=== PATIENT | female | born 1980 | race Native Hawaiian/Other Pacific Islander ===

== ENCOUNTER 2018-08-28 13:08 | Emergency (ER) | payer OTHER ==
[2018-08-28 13:18] VITALS: TEMP 98.3
[2018-08-28 14:04] VITALS: O2SAT 98
--- NOTE | 2018-08-28 15:14 | ED PDOC ---
HPI: Hypertension/Hypotension Time Seen by Provider: 08/28/18 14:37 Chief Complaint (Nursing): High Blood Pressure Chief Complaint (Provider): High Blood Pressure History Per: Patient History/Exam Limitations: no limitations Onset/Duration Of Symptoms: Days (2x weeks) Current Symptoms Are (Timing): Still Present Associated Symptoms: Blurred Vision, Other (numbness and tingling of left hand 1x day- has since resolved, left sided neck and shoulder pain 2x weeks.). latisha es: Chest Pain, Headache Severity: Moderate Additional Complaint(s): 37 year old female with no pertinent past medical history presents to the ED for an evaluation of elevated blood pressure that started 2x weeks ago. Patient states that she had a regular physical 4x months ago, and changed control to blisovi . Patient was seen at an urgent care 3x months ago for right shoulder pain and was noted to have elevated blood pressure and was told it was probably due to her shoulder pain. 2x weeks ago patient was seen by a sports medicine doctor for left shoulder pain and had elevated blood pressure (175/117). Patient reports checking her blood pressure since then and is concerned because it has stayed elevated. Patient reports having intermittent headaches and blurry vision. Last night patient started experiencing left sided neck pain and left arm weakness and left hand numbness which has resolved. Patient denies taking aspirin, having a headache in the ED, chest pain, numbness or weakness (aside from left arm), difficulty walking, eating salty foods, recent weight gain. Patient states that she has an appointment with her PMD on 09/06/2018. PMD: Jerry Barron MD (at [facility]). Past Medical History Reviewed: Historical Data, Nursing Documentation, Vital Signs Vital Signs: Last Vital Signs Temp 98.3 F 08/28/18 13:16 Pulse 72 08/28/18 14:33 Resp 19 08/28/18 14:33 BP 154/98 H 08/28/18 14:33 Pulse Ox 98 08/28/18 14:33 KAREL Report Viewed: Yes - Medical History PMH: No Chronic Diseases - Surgical History Surgical History: Cholecystectomy - Family History Family History: States: No Known Family Hx - Social History Current smoker - smoking cessation education provided: No Alcohol: Social Drugs: Denies - Home Medications Home Medications: Ambulatory Orders Medication Instructions Recorded Lisinopril [Zestril] 10 mg PO DAILY #30 tablet 08/28/18 - Allergies Allergies/Adverse Reactions: Allergies Allergy/AdvReac Type Severity Reaction Status Date / Time No Known Allergies Allergy Verified 08/28/18 13:12 Review of Systems ROS Statement: Except As Marked, All Systems Reviewed And Found Negative Constitutional: Negative for: Other (recent weight gain) Eyes: Positive for: Vision Change (blurred) Cardiovascular: Positive for: Other (elevated blood pressure). Negative for: Chest Pain Musculoskeletal: Positive for: Neck Pain (left sided), Shoulder Pain (left) Neurological: Positive for: Weakness (left arm weakness, otherwise no weakness.). Negative for: Numbness (left hand, since resolved), Headache, Other (difficulty walking) Physical Exam - Reviewed Nursing Documentation Reviewed: Yes Vital Signs Reviewed: Yes - Physical Exam Appears: Positive for: Well, Non-toxic, No Acute Distress Head Exam: Positive for: ATRAUMATIC, NORMOCEPHALIC Skin: Positive for: Normal Color, Warm, Dry Eye Exam: Positive for: Normal appearance Neck: Positive for: Normal Cardiovascular/Chest: Positive for: Regular Rate, Rhythm Respiratory: Positive for: Normal Breath Sounds Extremity: Positive for: Normal ROM Neurological/Psych: Positive for: Awake, Alert, Symmetric/Intact Strength, Oriented (3x), Cerebellar Tests (normal). Negative for: Motor/Sensory Deficits - Laboratory Results Result Diagrams: 08/28/18 15:22 08/28/18 15:22 - ECG O2 Sat by Pulse Oximetry: 98 (RA) Pulse Ox Interpretation: Normal - CT Scan/US CT head w/o contrast Other Rad Studies (CT/US): Read By Radiologist, Radiology Report Reviewed (see MDM note) - Progress Re-evaluation Time: 18:16 Condition: Re-examined, Improved Medical Decision Making Medical Decision Makin:37 Initial impression: 37 year old female with elevated blood pressure and left arm paresthesias. Differential diagnoses include but are not limited to hypertensive crisis, cervical radiculopathy. Less likely, but still considered: TIA. Initial plan: * CT head w/o contrast * EKG * BMP * CBC with differential * upreg * udip * reevaluation 16:19 CT head read and reviewed by radiologist FINDINGS: HEMORRHAGE: No intracranial hemorrhage. BRAIN: Normal jacques-white matter differentiation and density are appreciated throughout the cerebrum and cerebellum with the brainstem appearing unremarkable as well. There is no mass effect. There is no suspicious extra-axial fluid collection and the midline brain anatomy appears diffusely unremarkable. VENTRICLES: Unremarkable. No hydrocephalus. CALVARIUM: Unremarkable. PARANASAL SINUSES: Multifocal sinus disease seen at the right sphenoid, multiple left ethmoid and left maxillary sinuses as well as inferior left frontal sinus. MASTOID AIR CELLS: Unremarkable as visualized. No inflammatory changes. OTHER FINDINGS: None. IMPRESSION: No acute intracranial findings. Incidental sinusitis changes as discussed above. 17:18 Discussed case and findings with who states that the patient more likely has cervical radiculopathy rather than a TIA. states that the patient can be discharged with instructions to follow up with a neurologist and her PMD. Scribe Attestation: Documented byEri Ball, acting as a scribe for Jared Rodriguez MD. Provider Scribe Attestation: All medical record entries made by the Scribe were at my direction and personally dictated by me. I have reviewed the chart and agree that the record accurately reflects my personal performance of the history, physical exam, medical decision making, and the department course for this patient. I have also personally directed, reviewed, and agree with the discharge instructions and disposition. Disposition - Clinical Impression Clinical Impression: Hypertension, Arm paresthesia, left - Patient ED Disposition Is Patient to be Admitted: No Doctor Will See Patient In The: Office Counseled Patient/Family Regarding: Studies Performed, Diagnosis, Need For Followup - Disposition Referrals: Jermaine Buitrago MD [Medical Doctor] - Disposition: Routine/Home Disposition Time: 17:18 Condition: GOOD Additional Instructions: KUN BARBA, thank you for letting us take care of you today. Your provider was Jared Rodriguez MD and you were treated for POSS HBP, LEFT ARM NUMBNESS. The emergency medical care you received today was directed at your acute symptoms. If you were prescribed any medication, please fill it and take as directed. It may take several days for your symptoms to resolve. Return to the Emergency Department if your symptoms worsen, do not improve, or if you have any other problems. Please contact your doctor or call one of the physicians/clinics you have been referred to that are listed on the Patient Visit Information form that is included in your discharge packet. Bring any paperwork you were given at discharge with you along with any medications you are taking to your follow up visit. Our treatment cannot replace ongoing medical care by a primary care provider outside of the emergency department. Thank you for allowing the [email or web address] team to be part of your care today. If you had an X-Ray or CT scan: A Radiologist will review the ED reading if any change in treatment is needed we will contact you. Prescriptions: Lisinopril [Zestril] 10 mg PO DAILY #30 tablet Instructions: High Blood Pressure in Adults, Radiculopathy (DC) Forms: [facility] [facility] ([place])
[2018-08-28 15:35] LABS: BLOOD UREA NITROGEN 13 mg/dl (7-17); CALCIUM 9.4 mg/dL (8.4-10.2); GFR NON-AFRICAN AMERICAN > 60
[2018-08-28 15:36] LABS: BASO % 0.4 % (0.0-2.0); EOS % 0.5 % (0.0-4.0); LYMPH # 1.5 K/uL (1.0-4.3); LYMPH % 24.2 % (20.0-40.0); MEAN CELL VOLUME 88.7 fl (81.0-99.0); MEAN CORPUSCULAR HEMOGLOBIN 29.8 pg (27.0-31.0); MEAN CORPUSCULAR HGB CONC 33.6 g/dL (33.0-37.0); MEAN PLATELET VOLUME 7.8 fl (7.2-11.7); MONO # 0.4 K/uL (0.0-0.8); NEUT # 4.3 K/uL (1.8-7.0); NEUT % 68.9 % (50.0-75.0); NRBC % 0.1 % (0.0-0.0); RBC 4.02 Mil/uL (3.80-5.20); RED CELL DISTRIBUTION WIDTH 13.5 % (11.5-14.5); WHITE BLOOD COUNT 6.2 K/uL (4.8-10.8)
[2018-08-28 15:43] LABS: SQUAMOUS EPITHIAL 7 /hpf (0-5); URINE BILIRUBIN NEGATIVE (NEGATIVE); URINE BLOOD SMALL (NEGATIVE); URINE CLARITY CLOUDY (Clear); URINE COLOR YELLOW (YELLOW); URINE GLUCOSE (UA) NEG (NEGATIVE); URINE LEUKOCYTE ESTERASE LARGE Leu/uL (Negative); URINE PROTEIN NEGATIVE (NEGATIVE); URINE UROBILINOGEN 0.2-1.0 mg/dL (0.2-1.0)
--- NOTE | 2018-08-28 16:22 | CT ---
Date of service: 08/28/2018 PROCEDURE: CT HEAD WITHOUT CONTRAST. HISTORY: left arm numbness COMPARISON: None available. TECHNIQUE: Axial computed tomography images were obtained through the head/brain without intravenous contrast. Radiation dose: Total exam DLP = 806.53 mGy-cm. This CT exam was performed using one or more of the following dose reduction techniques: Automated exposure control, adjustment of the mA and/or kV according to patient size, and/or use of iterative reconstruction technique. FINDINGS: HEMORRHAGE: No intracranial hemorrhage. BRAIN: Normal jacques-white matter differentiation and density are appreciated throughout the cerebrum and cerebellum with the brainstem appearing unremarkable as well. There is no mass effect. There is no suspicious extra-axial fluid collection and the midline brain anatomy appears diffusely unremarkable. VENTRICLES: Unremarkable. No hydrocephalus. CALVARIUM: Unremarkable. PARANASAL SINUSES: Multifocal sinus disease seen at the right sphenoid, multiple left ethmoid and left maxillary sinuses as well as inferior left frontal sinus. MASTOID AIR CELLS: Unremarkable as visualized. No inflammatory changes. OTHER FINDINGS: None. IMPRESSION: No acute intracranial findings. Incidental sinusitis changes as discussed above.
[2018-08-28 18:31] VITALS: BP 160/80; PULSE 82; RESP 19
--- NOTE | 2018-08-29 10:23 | CARD ---
APPROVED REPORT Date of service: 08/28/2018 EKG Measurement Heart [id number] <Conclusion> Normal sinus rhythm Normal ECG
== END 2018-08-28 18:36 | disposition home or self-care (01) ==
LOC: H.ER 13:08
DX: I10 Essential (primary) hypertension (principal); R20.0 Anesthesia of skin; J32.9 Chronic sinusitis, unspecified